=== PATIENT | male | born 1990 | race Caucasian/White ===

== ENCOUNTER 2023-07-05 07:47 | Day surgery (SDC) | payer OTHER ==
[~2023-07-05] VITALS: Ht 182.9 cm; Wt 79.8 kg
[~2023-07-05 07:47] MED LIST: ceFAZolin SOD 2 GM in IV 1 EA IV ONE
[2023-07-05] MEDS ORDERED: LR 1,000 ML IV SCH (08:55)
[2023-07-05] MEDS ORDERED: MIDAZOLAM INJ 2MG/2ML VIAL As Ordered ONE (09:57)
[2023-07-05] MEDS ORDERED: KETAMINE HCL 200MG/20ML VIAL As Ordered ONE (09:57)
[2023-07-05] MEDS ORDERED: propofoL 200 MG/20 ML VIAL As Ordered ONE (09:57)
[2023-07-05 11:05] VITALS: BP 119/66; TEMP 97.3; O2SAT 100
== END 2023-07-05 11:19 | disposition home or self-care (01) ==
LOC: M SDC 07:47
PROVIDERS: ATTEND Surgery
DX: D17.1 Benign lipomatous neoplasm of skin and subcutaneous tissue of trunk (principal); F17.220 Nicotine dependence, chewing tobacco, uncomplicated
CPT/HCPCS: 11403; 88304; J0665; J0690; J2250